=== PATIENT | female | born 1945 | race Caucasian/White ===

== ENCOUNTER 2016-04-13 13:27 | Inpatient (IN) | payer OTHER, BC ==
[~2016-04-13] VITALS: Ht 170.2 cm; Wt 113.2 kg
[2016-04-13] VITALS (11 sets, daily range): BP systolic 132–172; BP diastolic 49–82
[~2016-04-13 13:27] MED LIST: ACTOS30 MG PO; BUTALB-APAP-CA1 EAC1 PO; CARDIZEM CD,CA240 MG PO; CIPRO500 MG PO; CITALOPRAM HBR20 MG PO; COUMADIN2 MG PO; CRESTOR20 MG PO; CRESTOR40 MG PO; ECOTRIN325 MG PO; EXFORGE 10/31 TABLET PO; FUROSEMIDE20 MG PO; HYDROCHLOROTH12.5 M3 PO; HYDROCODON-ACE1 EAC7 PO; JANUMET 50/11 TABLET PO; JANUVIA100 MG PO; LANTUS 3 M100 UNITS/ SC; LANTUS 3 M100 UNITS1 SC; LEVOTHYROXINE150 MCG PO; LEXAPRO10 MG PO; LOPRESSOR50 MG PO; LOSARTAN POTASS50 MG PO; LOVENOX100 MG/1 M SC; Levaquin PO; METOPROLOL TAR100 MG PO; NICOTINE PATCH1 EAC2 TD; NORTRIPTYLINE H10 MG PO; NUCYNTA50 MG PO; PERCOCET 5/31 TABLET PO; SPIRONOLACT/HC1 EACH PO; WARFARIN SODIUM2 MG PO; WELLBUTRIN XL150 MG PO; XARELTO20 MG PO
[2016-04-13 14:16] LABS: CREATININE 1.1 mg/dL (0.6-1.3); POTASSIUM 3.2 mEq/L (3.7-5.4)
[2016-04-13] MEDS ORDERED: NOVOLOG PE100 UNITS/ SC ×3 (14:18→14:19)
[2016-04-13 14:21] LABS: HEMATOCRIT 43.2 % (36.0-46.0); MCH 28.4 PG (29.0-34.0); MCHC 31.3 G/DL (30.0-36.0); MCV 90.8 FL (83-99); MEAN PLAT.VOLUME 8.9 uM^3 (9.5-12.4); PLATELET COUNT 222 K/uL (156-360); RBC DIS.WIDTH-CV 13.9 % (11.8-14.6); RBC DIS.WIDTH-SD 45.3 % (39-53); RED BLOOD COUNT 4.76 M/uL (3.80-5.20); WHITE BLOOD COUNT 24.2 K/uL (4.1-10.2)
[2016-04-13 14:31] LABS: INTER. NORMALIZED RATIO 3.4; PROTHROMBIN TIME 35.7 (9.2-11.2); PTT 42.5 (25-32)
[2016-04-13 15:02] LABS: AMYLASE 61 IU/L (1-118); ANION GAP 27 MEQ/L (2-14); CHLORIDE 99 MEQ/L (99-109); GFR ESTIMATE (CALCULATED) 47 mL/min/; GLUCOSE 375 mg/dL (70-99); LIPASE 29 U/L (1.0-51.0); POTASSIUM 3.4 MEQ/L (3.7-5.4); SAMPLE HEMOLYSIS CHECK 1; SAMPLE ICTERIC CHECK 0; SAMPLE LIPEMIA CHECK 0; SERUM ETHYL ALCOHOL < 10 mg/dL; SODIUM 143 MEQ/L (136-147); TROP-I INTERPRETATION NEGATIVE; TROPONIN-I < 0.01 ng/mL (0.0-0.30); UREA NITROGEN (BUN) 17 mg/dL (9-23)
[2016-04-13 15:09] LABS: ADD MIUA? YES; BILIRUBIN NEGATIVE; BLOOD MODERATE; COLOR YELLOW ((YELLOW)); GLUCOSE (STRIP) 250; KETONES NEGATIVE; LEUKOCYTES NEGATIVE; NITRITE NEGATIVE; PROTEIN (STRIP) >=300; SPECIFIC GRAVITY 1.017 (1.000-1.030); UROBILINOGEN 0.2 MG/DL (0.2-1.0)
[2016-04-13 15:20] LABS: AMPHETAMINE NEGATIVE (500 ng/mL); BARBITURATES NEGATIVE (200 ng/mL); BENZODIAZEPINES NEGATIVE (150 ng/mL); COCAINE NEGATIVE (150 ng/mL); INTERNAL CONTROLS VALID? YES; METHADONE NEGATIVE (200 ng/mL); METHAMPHETAMINE NEGATIVE (500 ng/mL); OPIATES (MORPHINE) NEGATIVE (100 ng/mL); OXYCODONE NEGATIVE (100 ng/mL); PHENCYCLIDINE NEGATIVE (25 ng/mL); PROPOXYPHENE NEGATIVE (300 ng/mL); THC CANNABINOIDS NEGATIVE (50 ng/mL); TRICYCLIC ANTIDEPRESSANTS NEGATIVE (300 ng/mL)
[2016-04-13 15:48] LABS: BACTERIA RARE; CASTS NONE SEEN /LPF; CRYSTALS NONE SEEN; EPITHELIAL CELLS RARE; MUCUS NONE SEEN; RED BLOOD CELLS RARE /HPF (0-5); UCUL ADDED? NO; WHITE BLOOD CELLS RARE /HPF (0-5)
[2016-04-13 15:49] LABS: ABS NEUTROPHIL COUNT 12.47; ATYPICAL LYMPHOCYTE 38.5 %; BAND NEUTROPHILS 3.5 % (0-8.0); BASOPHIL COUNT 0.1 K/uL (0-0.1); EOSINOPHIL ABS CT 0.36; EOSINOPHIL COUNT 0.3 K/uL (0-0.3); EOSINOPHILS 1.5 % (0-5.0); LYMPHOCYTE COUNT 9.9 K/uL (1.0-2.8); METAMYELOCYTES 1.5 %; MONOCYTE (%) 4.8 % (3-12); MONOCYTE COUNT 1.2 K/uL (0-0.8); NEUTROPHIL (%) 50.6 % (45-76); NEUTROPHIL COUNT 12.3 K/uL (1.8-6.4); PLAT.SUFFICIENCY NORMAL; SCHISTOCYTES OCC
[2016-04-13 16:09] LABS: BASE EXCESS -10.7 mEq/L (-3 to +3); CARBOXY HGB 1.9 % (0-5); METHEMOGLOBIN 1.7 % (0-1.5); PCO2 57 mm Hg (35-45); PO2 220 mm Hg (80-100); SITE RR; pH 7.13 (7.35-7.45)
[2016-04-13 16:10] LABS: COMMENTS - BLOOD GASES A+C+; DEVICE 840; FI02 100 %; MECHANICAL RATE 16 resp/min; MODE AC; PEEP 15 CM/H20; TIDAL VOLUME 500 ML; TOTAL RESP RATE 16 resp/min
[2016-04-13 19:15] LABS: BICARBONATE 18.9 mEq/L (22-26); CARBOXY HGB 2.6 % (0-5); METHEMOGLOBIN 1.7 % (0-1.5); PCO2 58 mm Hg (35-45)
[2016-04-13 19:16] LABS: COMMENTS - BLOOD GASES A+C+; DEVICE VENT; FI02 60 %; MECHANICAL RATE 18 resp/min; MODE A/C; PEEP 10 CM/H20; PO2 70 mm Hg (80-100); SITE RR; TIDAL VOLUME 500 ML; TOTAL RESP RATE 20 resp/min; pH 7.12 (7.35-7.45)
[2016-04-13 19:38] LABS: EOSINOPHIL (%) 0 % (0-5); IMMATURE GRANULOCYTE (%) 0.4 % (0.0-0.7); IMMATURE GRANULOCYTE COUNT 0.9 K/uL; MCH 28.2 PG (29.0-34.0); MCHC 32.3 G/DL (30.0-36.0); MCV 87.2 FL (83-99); MEAN PLAT.VOLUME 8.7 uM^3 (9.5-12.4); MONOCYTE (%) 5.4 % (3-12); MONOCYTE COUNT 1.2 K/uL (0-0.8); NEUTROPHIL (%) 89.7 % (45-76); NEUTROPHIL COUNT 19.6 K/uL (1.8-6.4); PLATELET COUNT 229 K/uL (156-360); RBC DIS.WIDTH-CV 14.1 % (11.8-14.6); RBC DIS.WIDTH-SD 44.9 % (39-53); RED BLOOD COUNT 4.93 M/uL (3.80-5.20); WHITE BLOOD COUNT 21.8 K/uL (4.1-10.2)
[2016-04-13 19:48] LABS: CHLORIDE 109 mEq/L (99-109); POTASSIUM 3.7 mEq/L (3.7-5.4); SODIUM 142 mEq/L (136-147)
[2016-04-13 19:49] LABS: MAGNESIUM 1.8 mg/dL (1.3-2.7)
[2016-04-13 19:51] LABS: GLUCOSE 392 mg/dL (70-99)
[2016-04-13 19:52] LABS: ANION GAP 16 MEQ/L (2-14); TOTAL BILIRUBIN 0.7 mg/dL (0.0-1.0)
[2016-04-13 19:54] LABS: ALKALINE PHOSPHATASE 106 IU/L (3-129); GFR ESTIMATE (CALCULATED) 43 mL/min/
[2016-04-13 19:55] LABS: UREA NITROGEN (BUN) 19 mg/dL (9-23)
[2016-04-13 19:56] LABS: DIRECT BILIRUBIN 0.3 mg/dL (0.0-0.3)
[2016-04-13 20:04] LABS: METH RESISTANT S AUREUS PCR NEGATIVE (NEGATIVE)
[2016-04-13 20:06] LABS: PROBE CHECK PASS; SPECIMEN PROCESSING CONTROL PASS
[2016-04-13 21:50] LABS: HEMATOCRIT 42.3 % (36.0-46.0); MCH 28.8 PG (29.0-34.0); MCHC 32.2 G/DL (30.0-36.0); MCV 89.6 FL (83-99); MEAN PLAT.VOLUME 9.3 uM^3 (9.5-12.4); PLATELET COUNT 197 K/uL (156-360); RBC DIS.WIDTH-CV 14.2 % (11.8-14.6); RBC DIS.WIDTH-SD 46.8 % (39-53); RED BLOOD COUNT 4.72 M/uL (3.80-5.20); WHITE BLOOD COUNT 21.3 K/uL (4.1-10.2)
[2016-04-13 21:57] LABS: EOSINOPHIL (%) 0 % (0-5); IMMATURE GRANULOCYTE (%) 0.3 % (0.0-0.7); IMMATURE GRANULOCYTE COUNT 0.1 K/uL; LYMPHOCYTE COUNT 0.6 K/uL (1.0-2.8); MONOCYTE (%) 3.1 % (3-12); MONOCYTE COUNT 0.7 K/uL (0-0.8); NEUTROPHIL (%) 93.9 % (45-76)
[2016-04-13 22:06] LABS: PTT 37.8 (25-32)
[2016-04-13 22:16] LABS: ANION GAP 19 MEQ/L (2-14); CHLORIDE 108 MEQ/L (99-109); GFR ESTIMATE (CALCULATED) 52 mL/min/; GLUCOSE 421 mg/dL (70-99); MAGNESIUM 1.7 mg/dl (1.3-2.7); POTASSIUM 3.7 MEQ/L (3.7-5.4); SAMPLE HEMOLYSIS CHECK 0; SAMPLE ICTERIC CHECK 0; SAMPLE LIPEMIA CHECK 0; SODIUM 142 MEQ/L (136-147); UREA NITROGEN (BUN) 21 mg/dL (9-23)
[2016-04-13 22:17] LABS: BASE EXCESS -12.5 mEq/L (-3 to +3); BICARBONATE 15.3 mEq/L (22-26); CARBOXY HGB 2.8 % (0-5); METHEMOGLOBIN 1.6 % (0-1.5); PCO2 41 mm Hg (35-45); PO2 86 mm Hg (80-100); pH 7.18 (7.35-7.45)
[2016-04-13 22:17] LABS: TROP-I INTERPRETATION INDETERMINATE; TROPONIN-I 0.36 ng/mL (0.0-0.30)
[2016-04-13 22:18] LABS: COMMENTS - BLOOD GASES A+C+; DEVICE VENT; FI02 40 %; MECHANICAL RATE 22 resp/min; MODE A/C; PEEP 10 CM/H20; SITE A LINE; TIDAL VOLUME 500 ML; TOTAL RESP RATE 27 resp/min
[2016-04-14] VITALS (22 sets, daily range): BP systolic 127–187; BP diastolic 49–87
[2016-04-14 01:51] LABS: HEMATOCRIT 41.2 % (36.0-46.0); MCH 28.2 PG (29.0-34.0); MCHC 32.5 G/DL (30.0-36.0); MCV 86.7 FL (83-99); MEAN PLAT.VOLUME 8.8 uM^3 (9.5-12.4); PLATELET COUNT 219 K/uL (156-360); RED BLOOD COUNT 4.75 M/uL (3.80-5.20); WHITE BLOOD COUNT 23.3 K/uL (4.1-10.2)
[2016-04-14 02:04] LABS: CHLORIDE 115 mEq/L (99-109); EOSINOPHIL (%) 0 % (0-5); IMMATURE GRANULOCYTE (%) 0.3 % (0.0-0.7); IMMATURE GRANULOCYTE COUNT 0.7 K/uL; LYMPHOCYTE COUNT 0.5 K/uL (1.0-2.8); MONOCYTE (%) 3.1 % (3-12); MONOCYTE COUNT 0.7 K/uL (0-0.8); NEUTROPHIL (%) 94.6 % (45-76); POTASSIUM 3.8 mEq/L (3.7-5.4); SODIUM 144 mEq/L (136-147)
[2016-04-14 02:05] LABS: MAGNESIUM 1.7 mg/dL (1.3-2.7)
[2016-04-14 02:05] LABS: BASE EXCESS -14.3 mEq/L (-3 to +3); BICARBONATE 13.9 mEq/L (22-26); CARBOXY HGB 2.6 % (0-5); COMMENTS - BLOOD GASES C+; DEVICE VENT; FI02 40 %; METHEMOGLOBIN 1.7 % (0-1.5); MODE A/C; PCO2 40 mm Hg (35-45); PO2 121 mm Hg (80-100); SITE ALINE; pH 7.15 (7.35-7.45)
[2016-04-14 02:06] LABS: MECHANICAL RATE 26 resp/min; PEEP 10 CM/H20; TIDAL VOLUME 500 ML; TOTAL RESP RATE 31 resp/min
[2016-04-14 02:09] LABS: PROTHROMBIN TIME 49.8 (9.2-11.2); PTT 38.5 (25-32)
[2016-04-14 02:10] LABS: GFR ESTIMATE (CALCULATED) 43 mL/min/
[2016-04-14 02:11] LABS: UREA NITROGEN (BUN) 21 mg/dL (9-23)
[2016-04-14 02:11] LABS: CREATINE KINASE 433 IU/L (1-294); TOTAL CK 433 IU/L (1-294)
[2016-04-14 02:14] LABS: TROP-I INTERPRETATION INDETERMINATE
[2016-04-14 02:17] LABS: GLUCOSE 452 mg/dL (70-99)
[2016-04-14 02:19] LABS: INTER. NORMALIZED RATIO 4.7
[2016-04-14 02:20] LABS: CK-MB 18.3 ng/mL (0.0-4.9)
[2016-04-14 02:23] LABS: UR CREATININE CONCENTRATION 21.6 MG/DL
[2016-04-14 02:33] LABS: ANION GAP 17 MEQ/L (2-14)
[2016-04-14 08:36] LABS: PTT 33.8 (25-32)
[2016-04-14 08:37] LABS: EOSINOPHIL (%) 0 % (0-5); HEMATOCRIT 39.9 % (36.0-46.0); IMMATURE GRANULOCYTE (%) 0.3 % (0.0-0.7); IMMATURE GRANULOCYTE COUNT 0.1 K/uL; LYMPHOCYTE COUNT 0.7 K/uL (1.0-2.8); MCH 27.6 PG (29.0-34.0); MCHC 31.6 G/DL (30.0-36.0); MCV 87.5 FL (83-99); MEAN PLAT.VOLUME 9.2 uM^3 (9.5-12.4); MONOCYTE (%) 2.7 % (3-12); MONOCYTE COUNT 0.6 K/uL (0-0.8); NEUTROPHIL (%) 93.9 % (45-76); PLATELET COUNT 191 K/uL (156-360); RBC DIS.WIDTH-CV 14.4 % (11.8-14.6); RBC DIS.WIDTH-SD 45.5 % (39-53); RED BLOOD COUNT 4.56 M/uL (3.80-5.20); WHITE BLOOD COUNT 21.3 K/uL (4.1-10.2)
[2016-04-14 08:41] LABS: INTER. NORMALIZED RATIO 2.9; PROTHROMBIN TIME 30.5 (9.2-11.2)
[2016-04-14 08:56] LABS: BASE EXCESS -8.2 mEq/L (-3 to +3); CARBOXY HGB 2.1 % (0-5); METHEMOGLOBIN 1.7 % (0-1.5); PCO2 44 mm Hg (35-45)
[2016-04-14 08:57] LABS: BICARBONATE 18.9 mEq/L (22-26); PO2 212 mm Hg (80-100); SITE ALINE; pH 7.24 (7.35-7.45)
[2016-04-14 08:59] LABS: COMMENTS - BLOOD GASES C+; DEVICE 840; FI02 40 %; MECHANICAL RATE 30 resp/min; MODE A/C; PEEP 10 CM/H20; TIDAL VOLUME 500 ML; TOTAL RESP RATE 30 resp/min
[2016-04-14 09:01] LABS: TROP-I INTERPRETATION NEGATIVE; TROPONIN-I 0.23 ng/mL (0.0-0.30)
[2016-04-14 09:49] LABS: ANION GAP 17 MEQ/L (2-14); CHLORIDE 118 MEQ/L (99-109); CREATINE KINASE 396 IU/L (1-294); GFR ESTIMATE (CALCULATED) 52 mL/min/; GLUCOSE 412 mg/dL (70-99); MAGNESIUM 1.8 mg/dl (1.3-2.7); POTASSIUM 3.5 MEQ/L (3.7-5.4); SAMPLE HEMOLYSIS CHECK 0; SAMPLE ICTERIC CHECK 0; SAMPLE LIPEMIA CHECK 0; SODIUM 152 MEQ/L (136-147); TOTAL CK 396 IU/L (1-294); UREA NITROGEN (BUN) 22 mg/dL (9-23)
[2016-04-14 09:51] LABS: CK-MB 29.4 ng/mL (0.0-4.9)
[2016-04-14 11:29] LABS: Estimated Average Glucose 189 mg/dL (70-123); HEMOGLOBIN A1c (GLYCOHEMOGLOB) 8.2 % HGB (Below 5.7)
[2016-04-14 13:42] LABS: POINT-OF-CARE USER ID NUTJLF39
[2016-04-14 14:36] LABS: BASE EXCESS -4.9 mEq/L (-3 to +3); BICARBONATE 19.8 mEq/L (22-26); CARBOXY HGB 2.2 % (0-5); METHEMOGLOBIN 1.6 % (0-1.5)
[2016-04-14 14:37] LABS: COMMENTS - BLOOD GASES C+; DEVICE 840; FI02 30 %; MODE A/C; PCO2 35 mm Hg (35-45); PO2 125 mm Hg (80-100); SITE ALINE; pH 7.36 (7.35-7.45)
[2016-04-14 14:38] LABS: MECHANICAL RATE 30 resp/min; PEEP 5 CM/H20; TIDAL VOLUME 500 ML; TOTAL RESP RATE 33 resp/min
[2016-04-14 14:52] LABS: HEMATOCRIT 40.7 % (36.0-46.0); MCH 28.7 PG (29.0-34.0); MCHC 33.4 G/DL (30.0-36.0); MCV 85.9 FL (83-99); MEAN PLAT.VOLUME 9.4 uM^3 (9.5-12.4); PLATELET COUNT 177 K/uL (156-360); RBC DIS.WIDTH-CV 14.2 % (11.8-14.6); RBC DIS.WIDTH-SD 44.4 % (39-53); RED BLOOD COUNT 4.74 M/uL (3.80-5.20); WHITE BLOOD COUNT 21.6 K/uL (4.1-10.2)
[2016-04-14 14:54] LABS: URIC ACID 8.2 mg/dL (3.1-9.2)
[2016-04-14 14:57] LABS: EOSINOPHIL (%) 0 % (0-5); IMMATURE GRANULOCYTE (%) 0.3 % (0.0-0.7); IMMATURE GRANULOCYTE COUNT 0.1 K/uL; LYMPHOCYTE COUNT 0.6 K/uL (1.0-2.8); MONOCYTE (%) 2.9 % (3-12); MONOCYTE COUNT 0.6 K/uL (0-0.8); NEUTROPHIL (%) 93.9 % (45-76); NEUTROPHIL COUNT 20.3 K/uL (1.8-6.4)
[2016-04-14 15:02] LABS: INTER. NORMALIZED RATIO 3.1; PROTHROMBIN TIME 32.8 (9.2-11.2); PTT 35.9 (25-32)
[2016-04-14 15:05] LABS: CHLORIDE 124 mEq/L (99-109); POTASSIUM 3.1 mEq/L (3.7-5.4); SODIUM 155 mEq/L (136-147)
[2016-04-14 15:06] LABS: MAGNESIUM 2.3 mg/dL (1.3-2.7)
[2016-04-14 15:07] LABS: GLUCOSE 293 mg/dL (70-99)
[2016-04-14 15:08] LABS: ANION GAP 16 MEQ/L (2-14)
[2016-04-14 15:11] LABS: GFR ESTIMATE (CALCULATED) 59 mL/min/; UREA NITROGEN (BUN) 21 mg/dL (9-23)
[2016-04-14 15:39] LABS: TROP-I INTERPRETATION NEGATIVE
[2016-04-14 17:04] LABS: POINT-OF-CARE METER ID UU13113731
[2016-04-14 17:19] LABS: ADD MIUA? YES; BILIRUBIN NEGATIVE; BLOOD LARGE; COLOR YELLOW ((YELLOW)); GLUCOSE (STRIP) 250; KETONES NEGATIVE; LEUKOCYTES NEGATIVE; NITRITE NEGATIVE; PH, URINE 5.5 (5-8); PROTEIN (STRIP) NEGATIVE; SPECIFIC GRAVITY 1.007 (1.000-1.030); UROBILINOGEN 0.2 MG/DL (0.2-1.0)
[2016-04-14 18:21] LABS: BACTERIA RARE; CASTS NONE SEEN /LPF; CRYSTALS NONE SEEN; EPITHELIAL CELLS NONE SEEN; MUCUS RARE; RED BLOOD CELLS 30-40 /HPF (0-5); UCUL ADDED? NO; WHITE BLOOD CELLS 0-5 /HPF (0-5)
[2016-04-14 19:15] LABS: ANION GAP 17 MEQ/L (2-14); CHLORIDE 118 MEQ/L (99-109); GFR ESTIMATE (CALCULATED) > 59 mL/min/; GLUCOSE 207 mg/dL (70-99); POTASSIUM 3.5 MEQ/L (3.7-5.4); SAMPLE HEMOLYSIS CHECK 1; SAMPLE ICTERIC CHECK 0; SAMPLE LIPEMIA CHECK 0; SODIUM 154 MEQ/L (136-147); UREA NITROGEN (BUN) 22 mg/dL (9-23)
[2016-04-14 20:25] LABS: BASE EXCESS -3.6 mEq/L (-3 to +3); BICARBONATE 20.6 mEq/L (22-26); CARBOXY HGB 2.4 % (0-5); COMMENTS - BLOOD GASES C+; DEVICE 840; FI02 30 %; METHEMOGLOBIN 1.8 % (0-1.5); MODE A/C; PCO2 34 mm Hg (35-45); PO2 147 mm Hg (80-100); SITE LEFT ALINE; pH 7.39 (7.35-7.45)
[2016-04-14 20:26] LABS: MECHANICAL RATE 30 resp/min; PEEP 5 CM/H20; TIDAL VOLUME 500 ML; TOTAL RESP RATE 33 resp/min
[2016-04-14 20:54] LABS: TROP-I INTERPRETATION NEGATIVE; TROPONIN-I 0.16 ng/mL (0.0-0.30)
[2016-04-14 20:57] LABS: INTER. NORMALIZED RATIO 4.2; PTT 40.7 (25-32)
[2016-04-14 20:58] LABS: PROTHROMBIN TIME 44.8 (9.2-11.2)
[2016-04-14 23:29] LABS: POINT-OF-CARE METER ID UU13113731
[2016-04-15 00:33] LABS: CHLORIDE 125 mEq/L (99-109); MAGNESIUM 2.1 mg/dL (1.3-2.7); POTASSIUM 3.1 mEq/L (3.7-5.4); SODIUM 155 mEq/L (136-147)
[2016-04-15 00:35] LABS: GLUCOSE 137 mg/dL (70-99)
[2016-04-15 00:35] LABS: POINT-OF-CARE METER ID UU13113731
[2016-04-15 00:36] LABS: ANION GAP 10 MEQ/L (2-14)
[2016-04-15 00:39] LABS: GFR ESTIMATE (CALCULATED) > 59 mL/min/; UREA NITROGEN (BUN) 22 mg/dL (9-23)
[2016-04-15 01:44] LABS: POINT-OF-CARE METER ID UU13113731
[2016-04-15 02:35] LABS: PROTHROMBIN TIME 51.7 (9.2-11.2); PTT 42.6 (25-32)
[2016-04-15 02:38] LABS: HEMATOCRIT 40.2 % (36.0-46.0); MCH 28.2 PG (29.0-34.0); MCHC 34.1 G/DL (30.0-36.0); MCV 82.7 FL (83-99); MEAN PLAT.VOLUME 8.7 uM^3 (9.5-12.4); PLATELET COUNT 199 K/uL (156-360); RBC DIS.WIDTH-CV 14.2 % (11.8-14.6); RBC DIS.WIDTH-SD 41.9 % (39-53); RED BLOOD COUNT 4.86 M/uL (3.80-5.20); WHITE BLOOD COUNT 25.5 K/uL (4.1-10.2)
[2016-04-15 02:40] LABS: INTER. NORMALIZED RATIO 4.8
[2016-04-15 02:44] LABS: TROP-I INTERPRETATION NEGATIVE; TROPONIN-I 0.17 ng/mL (0.0-0.30)
[2016-04-15 02:47] LABS: POINT-OF-CARE METER ID UU13113731
[2016-04-15 03:00] VITALS: BP 178/100
[2016-04-15 03:45] LABS: POINT-OF-CARE METER ID UU13113731
[2016-04-15 04:47] LABS: POINT-OF-CARE METER ID UU13113731
[2016-04-15 05:03] LABS: CHLORIDE 124 mEq/L (99-109); POTASSIUM 3.3 mEq/L (3.7-5.4); SODIUM 155 mEq/L (136-147)
[2016-04-15 05:06] LABS: GLUCOSE 178 mg/dL (70-99)
[2016-04-15 05:07] LABS: ANION GAP 12 MEQ/L (2-14)
[2016-04-15 05:09] LABS: GFR ESTIMATE (CALCULATED) > 59 mL/min/
[2016-04-15 05:10] LABS: UREA NITROGEN (BUN) 22 mg/dL (9-23)
[2016-04-15 05:29] LABS: BASE EXCESS -2.1 mEq/L (-3 to +3); BICARBONATE 20.9 mEq/L (22-26); CARBOXY HGB 2.4 % (0-5); METHEMOGLOBIN 1.8 % (0-1.5); PCO2 30 mm Hg (35-45); PO2 150 mm Hg (80-100); pH 7.45 (7.35-7.45)
[2016-04-15 05:30] LABS: COMMENTS - BLOOD GASES C+; DEVICE VENT; FI02 30 %; INSPIRATION TIME 0.9 seconds; MECHANICAL RATE 30 resp/min; MODE A/CVC+; PEEP 5 CM/H20; SITE ALINE; TIDAL VOLUME 500 ML; TOTAL RESP RATE 33 resp/min
[2016-04-15 05:47] LABS: POINT-OF-CARE METER ID UU13113731
[2016-04-15 06:01] LABS: CARBON DIOXIDE (BICARBONATE) 22.5 MEQ/L (20-31)
[2016-04-15 06:07] LABS: MCH 28.1 PG (29.0-34.0); MCHC 33.2 G/DL (30.0-36.0); MCV 84.8 FL (83-99); MEAN PLAT.VOLUME 9.8 uM^3 (9.5-12.4); PLATELET COUNT 174 K/uL (156-360); RBC DIS.WIDTH-CV 14.3 % (11.8-14.6); RBC DIS.WIDTH-SD 44.1 % (39-53); RED BLOOD COUNT 4.48 M/uL (3.80-5.20); WHITE BLOOD COUNT 22.1 K/uL (4.1-10.2)
[2016-04-15 06:21] LABS: TROP-I INTERPRETATION NEGATIVE; TROPONIN-I 0.17 ng/mL (0.0-0.30)
[2016-04-15 06:29] LABS: EOSINOPHIL (%) 0 % (0-5); IMMATURE GRANULOCYTE (%) 0.5 % (0.0-0.7); IMMATURE GRANULOCYTE COUNT 0.1 K/uL; LYMPHOCYTE COUNT 0.6 K/uL (1.0-2.8); MONOCYTE (%) 4.1 % (3-12); MONOCYTE COUNT 0.9 K/uL (0-0.8); NEUTROPHIL (%) 92.6 % (45-76); NEUTROPHIL COUNT 20.5 K/uL (1.8-6.4)
[2016-04-15 06:32] LABS: PTT 41.7 (25-32)
[2016-04-15 06:36] LABS: INTER. NORMALIZED RATIO 5.4
[2016-04-15 06:37] LABS: ANION GAP 11 MEQ/L (2-14); CHLORIDE 122 MEQ/L (99-109); GFR ESTIMATE (CALCULATED) > 59 mL/min/; GLUCOSE 168 mg/dL (70-99); MAGNESIUM 1.9 mg/dl (1.3-2.7); POTASSIUM 3.8 MEQ/L (3.7-5.4); SAMPLE HEMOLYSIS CHECK 2; SAMPLE ICTERIC CHECK 0; SAMPLE LIPEMIA CHECK 0; SODIUM 154 MEQ/L (136-147); UREA NITROGEN (BUN) 23 mg/dL (9-23)
[2016-04-15 08:19] LABS: POINT-OF-CARE METER ID UU13113731
[2016-04-15 09:30] LABS: POINT-OF-CARE METER ID UU13113731
[2016-04-15 10:23] LABS: POINT-OF-CARE METER ID UU13113731
[2016-04-15 11:38] LABS: POINT-OF-CARE METER ID UU13113731
[2016-04-15 12:30] LABS: POINT-OF-CARE METER ID UU13113731
[2016-04-15 12:53] LABS: POINT-OF-CARE METER ID UU13113731
[2016-04-15 12:54] LABS: MCH 27.8 PG (29.0-34.0); MCHC 32.9 G/DL (30.0-36.0); MCV 84.4 FL (83-99); MEAN PLAT.VOLUME 9.6 uM^3 (9.5-12.4); PLATELET COUNT 169 K/uL (156-360); RBC DIS.WIDTH-CV 14.6 % (11.8-14.6); RBC DIS.WIDTH-SD 44.8 % (39-53)
[2016-04-15 13:14] LABS: EOSINOPHIL (%) 0 % (0-5); IMMATURE GRANULOCYTE (%) 0.7 % (0.0-0.7); IMMATURE GRANULOCYTE COUNT 0.2 K/uL; LYMPHOCYTE COUNT 0.6 K/uL (1.0-2.8); MONOCYTE (%) 4.3 % (3-12); MONOCYTE COUNT 1.1 K/uL (0-0.8); NEUTROPHIL (%) 92.5 % (45-76); NEUTROPHIL COUNT 23.1 K/uL (1.8-6.4)
[2016-04-15 13:19] LABS: ANION GAP 12 MEQ/L (2-14); CHLORIDE 121 MEQ/L (99-109); GFR ESTIMATE (CALCULATED) > 59 mL/min/; GLUCOSE 174 mg/dL (70-99); MAGNESIUM 2.6 mg/dl (1.3-2.7); POTASSIUM 3.5 MEQ/L (3.7-5.4); SAMPLE HEMOLYSIS CHECK 0; SAMPLE ICTERIC CHECK 0; SAMPLE LIPEMIA CHECK 0; SODIUM 154 MEQ/L (136-147); UREA NITROGEN (BUN) 23 mg/dL (9-23)
[2016-04-15 13:25] LABS: TROP-I INTERPRETATION NEGATIVE; TROPONIN-I 0.18 ng/mL (0.0-0.30)
[2016-04-15 13:26] LABS: PROTHROMBIN TIME 54.9 (9.2-11.2); PTT 44.4 (25-32)
[2016-04-15 13:29] LABS: INTER. NORMALIZED RATIO 5.1
[2016-04-15 14:07] LABS: BASE EXCESS -2.1 mEq/L (-3 to +3); BICARBONATE 21.1 mEq/L (22-26); CARBOXY HGB 2.2 % (0-5); COMMENTS - BLOOD GASES C+; DEVICE VENT; FI02 30 %; METHEMOGLOBIN 1.9 % (0-1.5); MODE AC VC+; PCO2 31 mm Hg (35-45); PO2 126 mm Hg (80-100); SITE LR ALINE; pH 7.44 (7.35-7.45)
[2016-04-15 14:08] LABS: INSPIRATION TIME 0.9 seconds; MECHANICAL RATE 30 resp/min; PEEP 5 CM/H20; TIDAL VOLUME 500 ML; TOTAL RESP RATE 30 resp/min
[2016-04-15 14:10] LABS: POINT-OF-CARE METER ID UU13113731
[2016-04-15 15:22] LABS: POINT-OF-CARE METER ID UU13113731
[2016-04-15 16:19] LABS: POINT-OF-CARE METER ID UU13113731
[2016-04-15 18:23] LABS: HEMATOCRIT 37.1 % (36.0-46.0); MCH 27.3 PG (29.0-34.0); MCHC 32.3 G/DL (30.0-36.0); MCV 84.3 FL (83-99); MEAN PLAT.VOLUME 10.4 uM^3 (9.5-12.4); NRBC (%) 0.1 /100 WBC (0-0); PLATELET COUNT 197 K/uL (156-360); POINT-OF-CARE METER ID UU13113731; RBC DIS.WIDTH-CV 14.8 % (11.8-14.6); RBC DIS.WIDTH-SD 45.3 % (39-53); WHITE BLOOD COUNT 25.9 K/uL (4.1-10.2)
[2016-04-15 18:25] LABS: EOSINOPHIL (%) 0 % (0-5); IMMATURE GRANULOCYTE COUNT 0.3 K/uL; LYMPHOCYTE COUNT 0.6 K/uL (1.0-2.8); MONOCYTE (%) 4.3 % (3-12); MONOCYTE COUNT 1.1 K/uL (0-0.8); NEUTROPHIL (%) 92.1 % (45-76); NEUTROPHIL COUNT 23.9 K/uL (1.8-6.4)
[2016-04-15 18:34] LABS: PTT 44.8 (25-32)
[2016-04-15 18:39] LABS: PROTHROMBIN TIME 60.7 (9.2-11.2)
[2016-04-15 18:41] LABS: INTER. NORMALIZED RATIO 5.6
[2016-04-15 18:54] LABS: ANION GAP 13 MEQ/L (2-14); CHLORIDE 122 MEQ/L (99-109); GFR ESTIMATE (CALCULATED) > 59 mL/min/; GLUCOSE 193 mg/dL (70-99); MAGNESIUM 2.4 mg/dl (1.3-2.7); SAMPLE HEMOLYSIS CHECK 1; SAMPLE ICTERIC CHECK 0; SAMPLE LIPEMIA CHECK 0; SODIUM 154 MEQ/L (136-147); UREA NITROGEN (BUN) 23 mg/dL (9-23)
[2016-04-15 19:01] LABS: TROP-I INTERPRETATION NEGATIVE; TROPONIN-I 0.26 ng/mL (0.0-0.30)
[2016-04-15 19:07] LABS: POTASSIUM 4.3 MEQ/L (3.7-5.4)
[2016-04-15 19:18] LABS: POINT-OF-CARE METER ID UU13113731
[2016-04-15 20:20] VITALS: BP 51/27
[2016-04-15 20:30] LABS: POINT-OF-CARE METER ID UU13113731
== END 2016-04-15 20:37 | DRG 915 ==
LOC: EME 13:27 → 4WEST 16:04 → EDOF 16:04 → 4WEST 18:29
PROVIDERS: Emergency Medicine; Internal Medicine Critical Care Medicine; Internal Medicine Nephrology
DX: T78.2XXA Anaphylactic shock, unspecified, initial encounter (principal); I46.9 Cardiac arrest, cause unspecified; J96.01 Acute respiratory failure with hypoxia; J96.02 Acute respiratory failure with hypercapnia; G93.1 Anoxic brain damage, not elsewhere classified; D68.9 Coagulation defect, unspecified; I31.3 Pericardial effusion (noninflammatory); E87.0 Hyperosmolality and hypernatremia; E87.2 Acidosis; I48.1 Persistent atrial fibrillation; I48.92 Unspecified atrial flutter; I47.2 Ventricular tachycardia; I95.9 Hypotension, unspecified; I50.9 Heart failure, unspecified; E11.65 Type 2 diabetes mellitus with hyperglycemia; I10 Essential (primary) hypertension; F32.9 Major depressive disorder, single episode, unspecified; E87.6 Hypokalemia; R57.0 Cardiogenic shock; G89.29 Other chronic pain; E78.5 Hyperlipidemia, unspecified; Z91.013 Allergy to seafood; Z88.0 Allergy status to penicillin; E03.2 Hypothyroidism due to medicaments and other exogenous substances; I27.2 Other secondary pulmonary hypertension; E66.9 Obesity, unspecified; I44.7 Left bundle-branch block, unspecified
CPT/HCPCS: 36600; 70450; 71010; 71250; 74176; 80047; 80048; 80048 91; 80076; 81003; 82150; 82330; 82550; 82550 91; 82553; 82570; 82803; 82948; 83036; 83605; 83690; 83735; 83930; 83935; 84100; 84156; 84300; 84484; 84550; 85025; 85025 91; 85027; 85610; 85730; 86850; 86900; 86901; 87040; 87070; 87086; 87205; 87641; 93005; 93306; 94002; 94003; 94640 76; 94644; 99202; 99281; 99285; C1894; G0480; J0171; J0360; J0461; J0692; J1100; J1200; J1815; J2920; J2930; J3010; J3370; J3475; J3480; J7030; J7040; J7050; J7070; P9017; S0028; S0030